=== PATIENT | male | born 1955 | race Caucasian/White ===

== ENCOUNTER 2018-11-01 22:16 | Emergency (ER) | payer MEDICAID ==
[2018-11-01 22:31] VITALS: BP 120/80; PULSE 86; RESP 16; TEMP 98.6; O2SAT 97
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
== END 2018-11-02 00:20 | disposition home or self-care (01) ==
LOC: H.ER 22:16
DX: Z00.00 Encounter for general adult medical examination without abnormal findings (principal)